=== PATIENT | female | born 1930 | race Caucasian/White ===

== ENCOUNTER → 2016-04-27 | Outpatient (CLI) | payer MEDICARE ==
[~2016-04-27] MED LIST: DIOV160T60 PO; OMEP20CA5 PO; RALO1TAB13 PO; REST15CA PO; TOPR100T15 PO; VITA400C28 PO; ZOCO40TA PO; [UNRECOGNIZED DRUG - CODE] PO; iron PO
[2016-04-27 16:05] LABS: AUTOMATED NEUTROPHIL # 6.7 TH/MM3 (1.8-7.7); BASOPHIL # 0.1 TH/MM3 (0-0.2); EOSINOPHIL # 0.1 TH/MM3 (0-0.4); EOSINOPHIL % 0.7 % (0.0-4.0); HEMO FLAGS DIFF FINAL; LYMPH % 18.7 % (9.0-44.0); LYMPHOCYTE # 1.7 TH/MM3 (1.0-4.8); MEAN CELL VOLUME 100.3 FL (80.0-100.0); MEAN CORPUSCULAR HEMOGLOBIN 31.8 PG (27.0-34.0); MEAN CORPUSCULAR HGB CONC 31.8 % (32.0-36.0); MONO % 7.6 % (0.0-8.0); PLATELET COUNT 233 TH/MM3 (150-450); RED BLOOD COUNT 3.69 MIL/MM3 (4.00-5.30); RED CELL DISTRIBUTION WIDTH 16.3 % (11.6-17.2); WHITE BLOOD COUNT 9.2 TH/MM3 (4.0-11.0)
[2016-04-27 16:27] LABS: BICARBONATE 25.2 MEQ/L (21.0-32.0)
[2016-04-27 16:28] LABS: POTASSIUM 4.6 MEQ/L (3.5-5.1)
== END ==
LOC: PLAB 11:28
PROVIDERS: ATTEND Family Medicine
DX: I12.9 Hypertensive chronic kidney disease with stage 1 through stage 4 chronic kidney disease, or unspecified chronic kidney disease (principal); N18.3 Chronic kidney disease, stage 3 (moderate)
CPT/HCPCS: 36415; 80048; 85025

== ENCOUNTER → 2016-09-21 | Outpatient (CLI) | payer MEDICARE ==
[2016-09-21 13:09] LABS: AUTOMATED NEUTROPHIL # 4.1 TH/MM3 (1.8-7.7); BASOPHIL # 0.1 TH/MM3 (0-0.2); BASOPHIL % 1.5 % (0.0-2.0); EOSINOPHIL # 0.4 TH/MM3 (0-0.4); EOSINOPHIL % 6.4 % (0.0-4.0); HEMATOCRIT 34.2 % (35.0-46.0); HEMO FLAGS DIFF FINAL; LYMPH % 16.9 % (9.0-44.0); MEAN CELL VOLUME 97.4 FL (80.0-100.0); MEAN CORPUSCULAR HEMOGLOBIN 31.1 PG (27.0-34.0); MEAN CORPUSCULAR HGB CONC 31.9 % (32.0-36.0); MONO % 8.8 % (0.0-8.0); NEUT % 66.4 % (16.0-70.0); PLATELET COUNT 210 TH/MM3 (150-450); RED BLOOD COUNT 3.51 MIL/MM3 (4.00-5.30); RED CELL DISTRIBUTION WIDTH 15.2 % (11.6-17.2); WHITE BLOOD COUNT 6.2 TH/MM3 (4.0-11.0)
[2016-09-21 13:40] LABS: ANION GAP 9 MEQ/L (5-15); AST (GOT) 13 U/L (15-37); BLOOD UREA NITROGEN 33 MG/DL (7-18); CHLORIDE 112 MEQ/L (98-107); GLOMERULAR FILTRATION RATE 30 ML/MIN (>89); GLUCOSE,FASTING 88 MG/DL (74-99); POTASSIUM 4.9 MEQ/L (3.5-5.1); SODIUM (NA) 145 MEQ/L (136-145)
[2016-09-21 13:45] LABS: ALKALINE PHOSPHATASE 61 U/L (45-117); ALT (GPT) 13 U/L (10-53); HDL CHOLESTEROL 51.6 MG/DL (40.0-60.0); LDL CHOLESTEROL 81 MG/DL (0-99); TOTAL BILIRUBIN ADULT 0.3 MG/DL (0.2-1.0); URIC ACID 9.1 MG/DL (2.6-6.0)
== END ==
LOC: PLAB 08:29
PROVIDERS: ATTEND Family Medicine
DX: M10.9 Gout, unspecified (principal)
CPT/HCPCS: 36415; 80053; 80061; 84550; 85025

== ENCOUNTER → 2017-04-17 | Outpatient (CLI) | payer MEDICARE ==
[2017-04-17 14:00] LABS: AUTOMATED NEUTROPHIL # 4.2 TH/MM3 (1.8-7.7); BASOPHIL # 0.1 TH/MM3 (0-0.2); BASOPHIL % 1.5 % (0.0-2.0); EOSINOPHIL # 0.3 TH/MM3 (0-0.4); EOSINOPHIL % 5.1 % (0.0-4.0); HEMATOCRIT 33.1 % (35.0-46.0); HEMOGLOBIN 10.8 GM/DL (11.6-15.3); LYMPH % 19.7 % (9.0-44.0); LYMPHOCYTE # 1.3 TH/MM3 (1.0-4.8); MEAN CELL VOLUME 99.6 FL (80.0-100.0); MEAN CORPUSCULAR HEMOGLOBIN 32.5 PG (27.0-34.0); MEAN CORPUSCULAR HGB CONC 32.6 % (32.0-36.0); MONO % 9.3 % (0.0-8.0); MONOCYTE # 0.6 TH/MM3 (0-0.9); NEUT % 64.4 % (16.0-70.0); PLATELET COUNT 188 TH/MM3 (150-450); RED BLOOD COUNT 3.32 MIL/MM3 (4.00-5.30); RED CELL DISTRIBUTION WIDTH 13.8 % (11.6-17.2); WHITE BLOOD COUNT 6.5 TH/MM3 (4.0-11.0)
[2017-04-17 14:04] LABS: ALBUMIN 3.2 GM/DL (3.4-5.0); ALT (GPT) 14 U/L (10-53); AST (GOT) 18 U/L (15-37); BICARBONATE 24.3 MEQ/L (21.0-32.0); BLOOD UREA NITROGEN 30 MG/DL (7-18); CALCIUM 8.3 MG/DL (8.5-10.1); CHLORIDE 111 MEQ/L (98-107); CHOLESTEROL 183 MG/DL (120-200); CREATININE 1.69 MG/DL (0.50-1.00); GLOMERULAR FILTRATION RATE 29 ML/MIN (>89); GLUCOSE,FASTING 94 MG/DL (74-99); SODIUM (NA) 144 MEQ/L (136-145)
[2017-04-17 14:07] LABS: ALKALINE PHOSPHATASE 64 U/L (45-117); HDL CHOLESTEROL 50.7 MG/DL (40.0-60.0); LDL CHOLESTEROL 114 MG/DL (0-99); TOTAL BILIRUBIN ADULT 0.2 MG/DL (0.2-1.0); TOTAL PROTEIN 6.8 GM/DL (6.4-8.2); TRIGLYCERIDES 92 MG/DL (42-150)
== END ==
LOC: PLAB 10:16
PROVIDERS: ATTEND Family Medicine
DX: R58 Hemorrhage, not elsewhere classified (principal); B02.29 Other postherpetic nervous system involvement; R09.89 Other specified symptoms and signs involving the circulatory and respiratory systems; I12.9 Hypertensive chronic kidney disease with stage 1 through stage 4 chronic kidney disease, or unspecified chronic kidney disease; N18.3 Chronic kidney disease, stage 3 (moderate); E78.2 Mixed hyperlipidemia
CPT/HCPCS: 36415; 80053; 80061; 85025